=== PATIENT | male | born 2000 | race Caucasian/White ===

== ENCOUNTER 2021-03-13 14:53 | Emergency (ER) | payer OTHER | END 2021-03-13 17:31 | disposition home or self-care (01) | LOC: FER 14:53 | DX: S62.336A Displaced fracture of neck of fifth metacarpal bone, right hand, initial encounter for closed fracture (principal); W01.198A Fall on same level from slipping, tripping and stumbling with subsequent striking against other object, initial encounter; Y92.009 Unspecified place in unspecified non-institutional (private) residence as the place of occurrence of the external cause | CPT/HCPCS: 73130 ==